=== PATIENT | male | born 1970 | race Caucasian/White ===

== ENCOUNTER → 2020-06-05 08:15 | Outpatient (CLI) | payer SELFPAY ==
--- NOTE | 2020-06-05 13:37 | NEURO ---
NCS and/or EMG Patient Report Ordering Doctor: Alesia Ortega DATE OF SERVICE: 06/05/20 Dhaval Rome is a 49-year-old male presents for electrodiagnostic testing of the upper limbs. He reports numbness and tingling in the hands, worse on the right side. Electrodiagnostic findings: Absent right median motor response. Left median motor nerve demonstrates prolonged distal latency with normal amplitude and borderline reduced conduction velocity. Normal ulnar motor response bilaterally. Absent right median F-wave. Absent right median sensory latency at the wrist. Prolonged left median palmar latency. Absent right median palmar response. Normal ulnar and radial sensory responses. On needle EMG, all muscles tested in the upper limbs showed no evidence of denervation with normal motor unit action potentials. Electrodiagnostic assessment: This is an abnormal study in the upper limbs 1. Electrodiagnostic findings demonstrate bilateral median mononeuropathy. This is consistent with an advanced right carpal tunnel syndrome and a mild left carpal tunnel syndrome. 2. No electrodiagnostic evidence for ulnar neuropathy 3. No electrodiagnostic evidence for cervical radiculopathy. If there are any further questions, please do not hesitate to contact me
== END ==
PROVIDERS: PCP Physician Assistant
DX: G56.03 Carpal tunnel syndrome, bilateral upper limbs (principal)
CPT/HCPCS: 95886; 95912